=== PATIENT | female | born 1950 | race Caucasian/White ===

== ENCOUNTER → 2019-01-02 | Outpatient (CLI) | payer MEDICARE, BC | LOC: CLIN-SCCH 08:00 | PROVIDERS: ATTEND Family Medicine | DX: R19.7 Diarrhea, unspecified (principal); E03.9 Hypothyroidism, unspecified; E78.00 Pure hypercholesterolemia, unspecified; K74.60 Unspecified cirrhosis of liver | CPT/HCPCS: 99213 ==

== ENCOUNTER 2021-01-17 01:05 | Emergency (ER) | payer MEDICARE ==
--- NOTE | 2021-01-17 01:32 | ERPHSYRPT ---
- History of Present Illness Time Seen by Provider: 01/17/21 01:20 Source: patient Exam Limitations: no limitations Physician History: This is a 70-year-old obese white female who was here at the hospital waiting for her to be admitted. Once her was admitted in the hospital patient went out to her son's car to be transported home. However, when she stepped into the car her other leg that she was standing on gave out and she fell hitting the back of her head. She did not lose consciousness but had a headache and some dizziness. Patient did admit to taking a 25 mg Benadryl by mouth prior to leaving the hospital and being transported home. She has no neck pain. There are no visual changes. Occurred: just prior to arrival Severity: mild Head Injury Location: occipital Method of Injury: fell (Patient slipped and fell on the wet parking lot) Loss of Consciousness: no loss of consciousness Associated Symptoms: headaches Allergies/Adverse Reactions: famotidine [From Pepcid] Adverse Reaction (Intermediate, Verified 01/17/21 01:18) Diarrhea omeprazole [From Prilosec] Adverse Reaction (Intermediate, Verified 01/17/21 01:18) Diarrhea Penicillins Adverse Reaction (Intermediate, Verified 01/17/21 01:18) Hives shellfish derived Adverse Reaction (Intermediate, Verified 01/17/21 01:18) Hives Home Medications: Allopurinol 100 mg [Zyloprim 100 mg] 100 mg PO DAILY 01/17/21 [History] Atorvastatin Calcium 10 mg PO HS 01/17/21 [History] Colesevelam HCl 3.75 gm PO DAILY 01/17/21 [History] Levothyroxine Sodium 88 Mcg [Synthroid 88 Mcg] 88 mcg PO DAILY 01/17/21 [History] Sertraline HCl 100 mg PO DAILY 01/17/21 [History] Solifenacin Succinate 10 mg PO DAILY 01/17/21 [History] Ziprasidone HCl [Geodon] 60 mg PO HS 01/17/21 [History] Travel Risk - International Travel Have you traveled outside of the country in past 3 weeks: No - Coronavirus Screening Are you exhibiting any of the following symptoms?: No Close contact with a COVID-19 positive Pt in past 14-21 Days: No - Review of Systems Constitutional: No Symptoms Eyes: No Symptoms Ears, Nose, & Throat: No Symptoms Respiratory: No Symptoms Cardiac: No Symptoms Abdominal/Gastrointestinal: No Symptoms Genitourinary Symptoms: No Symptoms Musculoskeletal: No Symptoms Skin: No Symptoms Neurological: Dizziness, Headache Psychological: No Symptoms Endocrine: No Symptoms Hematologic/Lymphatic: No Symptoms Immunological/Allergic: No Symptoms All Other Systems: Reviewed and Negative - Past Medical History Pertinent Past Medical History: Yes Neurological History: No Pertinent History ENT History: No Pertinent History Cardiac History: High Cholesterol Respiratory History: No Pertinent History Endocrine Medical History: Hypothyroidism Musculoskeletal History: No Pertinent History GI Medical History: Diverticulitis, Polyps History: No Pertinent History Psycho-Social History: Anxiety, Depression Female Reproductive Disorders: No Pertinent History - Past Surgical History Past Surgical History: Yes Neuro Surgical History: No Pertinent History Cardiac: No Pertinent History Respiratory: No Pertinent History Gastrointestinal: Cholecystectomy Musculoskeletal: Joint Replacement Female Surgical History: Hysterectomy Other Surgical History: HX RIGHT HIP PLACEMENT - Social History Drug Use: none - Nursing Vital Signs Nursing Vital Signs: Initial Vital Signs Temperature 97.2 F 01/17/21 01:06 Pulse Rate 87 01/17/21 01:06 Respiratory Rate 22 01/17/21 01:06 Blood Pressure 158/72 01/17/21 01:06 O2 Sat by Pulse Oximetry 95 01/17/21 01:06 Pain Scale Pain Intensity 7 - [place] Coma Score Best Eye Response ([place]): (4) open spontaneously Best Verbal Response ([place]): (5) oriented Best Motor Response ([place]): (6) obeys commands [place] Total: 15 - Physical Exam General Appearance: no apparent distress, alert, anxiety Head Injury: contusions (Occipital region. No evidence of laceration.), tenderness, No active bleeding, No lacerations Eye Exam: bilateral eye: normal inspection, PERRL, EOMI ENT Exam: airway nml, nml ext.inspection Neck Exam: supple, trachea midline, full range of motion, normal alignment Cardiovascular/Respiratory Exam: chest non-tender, no respiratory distress Gastrointestinal/Abdominal Exam: soft, non tender, no distention, no mass, no guarding, no ecchymosis, no organomegaly, no pulsatile mass, normal bowel sounds Pelvic Exam: not done Rectal Exam: not done Back Exam: normal inspection, normal range of motion, No CVA tenderness, No vertebral tenderness Extremity Exam: non-tender, normal range of motion, normal inspection Mental Status Exam: alert, 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 x 3, 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 Exam: normal hearing, normal speech, PERRL, tongue midline Motor/Sensory Exam: no motor deficit, no sensory deficit Skin Exam: abrasion (Occipital region.), No laceration Lymphatic Exam: No adenopathy SpO2 Interpretation: borderline oxygenation SpO2: 95 O2 Delivery: Room Air - Course Nursing assessment & vital signs reviewed: Yes Ordered Tests: Active Orders 24 hr Category Date Time Status HEAD WITHOUT CONTRAST [CT] Stat Exams 01/17/21 01:31 Taken - Progress Progress: improved Progress Note: 01/17/21 02:35 CAT scan of the head without contrast was read by [facility] and shows no acute intracranial abnormality Counseled pt/family regarding: diagnosis, need for follow-up, rad results - Departure Departure Disposition: Home Clinical Impression: Fall, Head injury Condition: Stable Critical Care Time: No Referrals: NAVJOT ADAMSON DO [Primary Care Provider] - Follow up/PCP as directed Additional Instructions: Drink plenty of fluids. Use Tylenol for pain control. Avoid any sedating drugs for the next 24 hours. Follow-up with your primary care physician for evaluation and management of any persistent headaches or dizziness.
--- NOTE | 2021-01-17 09:20 | XRAY ---
Indication: Head injury following fall. Multiple contiguous axial images obtained through the head without contrast. Comparison: None Small posterior midline scalp hematoma. Otherwise normal appearing brain parenchyma, ventricles, and bony calvarium for patient's age. Visualized paranasal sinuses and mastoid air cells are clear. Impression: Small posterior scalp hematoma. No underlying fracture or acute intracranial abnormalities. Comment: Preliminary interpretation made by [facility]. No critical discrepancy.
== END 2021-01-17 03:35 | disposition home or self-care (01) ==
LOC: ED 01:05
DX: S09.90XA Unspecified injury of head, initial encounter (principal); V48.4XXA Person boarding or alighting a car injured in noncollision transport accident, initial encounter; Y92.481 Parking lot as the place of occurrence of the external cause; Z79.899 Other long term (current) drug therapy; R51.9 Headache, unspecified; R42 Dizziness and giddiness
CPT/HCPCS: 70450; 99284

== ENCOUNTER 2022-06-30 10:07 | Inpatient (IN) | payer MEDICARE, BC ==
--- NOTE | 2022-06-30 10:43 | ERPHSYRPT ---
- History of Present Illness Source: patient Exam Limitations: no limitations Patient Subjective Stated Complaint: PT states "[facility] me here.". 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 We did a PCR, we did a chest x ray and we did a strep test." Triage Nursing Assessment: Pt presented alert and oriented X 3, skin pwd. Pt ambulates with a slow gait, able to speak in clear full sentences pt in slightly short of breath. Physician History: 71 yo WF sent from clinic for new onset of Afib. Pt has had a cough for 4days but denies coryza/fever/N/V/diarrhea/melena/hematochezia/chest pain/abdominal pain. She has DUE. Timing/Duration: gradual onset Severity: mild Prearrival Treatment: no prearrival treatment Modifying Factors: Improves With: activity, coughing Associated Symptoms: denies symptoms Allergies/Adverse Reactions: famotidine [From Pepcid] Adverse Reaction (Intermediate, Verified 01/17/21 01:18) Diarrhea omeprazole [From Prilosec] Adverse Reaction (Intermediate, Verified 01/17/21 01:18) Diarrhea Penicillins Adverse Reaction (Intermediate, Verified 01/17/21 01:18) Hives shellfish derived Adverse Reaction (Intermediate, Verified 01/17/21 01:18) Hives Home Medications: Allopurinol 100 mg [Zyloprim 100 mg] 100 mg PO DAILY 01/17/21 [History] Atorvastatin Calcium 10 mg PO HS 01/17/21 [History] Colesevelam HCl 3.75 gm PO DAILY 01/17/21 [History] Levothyroxine Sodium 88 Mcg [Synthroid 88 Mcg] 88 mcg PO DAILY 01/17/21 [History] Sertraline HCl 100 mg PO DAILY 01/17/21 [History] Solifenacin Succinate 10 mg PO DAILY 01/17/21 [History] ziprasidone HCL [Geodon] 60 mg PO HS 01/17/21 [History] Hx Tetanus, Diphtheria Vaccination/Date Given: Yes Hx Influenza Vaccination/Date Given: No Hx Pneumococcal Vaccination/Date Given: Yes Immunizations Up to Date: Yes Travel Risk - International Travel Have you traveled outside of the country in past 3 weeks: No - Coronavirus Screening Symptoms: Cough: New Onset, Shortness of Breath Close contact with a COVID-19 positive Pt in past 14-21 Days: No - Vaccine Status Have you recieved a Covid-19 vaccination: Yes 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[employer] - Vaccination Dates Date of 2cond Vaccination (if applicable): 06/05/20 - Review of Systems Constitutional: No Symptoms, Fatigue, Malaise Eyes: No Symptoms Ears, Nose, & Throat: No Symptoms Respiratory: No Symptoms, Cough, Dyspnea on Exertion ([place]) Cardiac: No Symptoms Abdominal/Gastrointestinal: No Symptoms Genitourinary Symptoms: No Symptoms Musculoskeletal: No Symptoms Skin: No Symptoms Neurological: No Symptoms Psychological: No Symptoms Endocrine: No Symptoms Hematologic/Lymphatic: No Symptoms Immunological/Allergic: No Symptoms - Past Medical History Pertinent Past Medical History: Yes Neurological History: No Pertinent History ENT History: No Pertinent History Cardiac History: High Cholesterol Respiratory History: No Pertinent History Endocrine Medical History: Hypothyroidism Musculoskeletal History: No Pertinent History GI Medical History: Diverticulitis, Polyps History: No Pertinent History Psycho-Social History: Anxiety, Depression Female Reproductive Disorders: No Pertinent History - Past Surgical History Past Surgical History: Yes Neuro Surgical History: No Pertinent History Cardiac: No Pertinent History Respiratory: No Pertinent History Gastrointestinal: Cholecystectomy Musculoskeletal: Joint Replacement Female Surgical History: Hysterectomy Other Surgical History: HX RIGHT HIP PLACEMENT - Social History Smoking Status: Never smoker Exposure to second hand smoke: No Drug Use: none Patient Lives Alone: No - Nursing Vital Signs Nursing Vital Signs: Initial Vital Signs Temperature 98.7 F 06/30/22 10:12 Pulse Rate 113 H 06/30/22 10:12 Respiratory Rate 24 06/30/22 10:12 Blood Pressure 119/87 06/30/22 10:12 O2 Sat by Pulse Oximetry 95 06/30/22 10:12 Pain Scale Pain Intensity 4 Tachy - Physical Exam General Appearance: no apparent distress Eye Exam: bilateral eye: normal inspection, PERRL, EOMI Ear Exam: bilateral ear: other (TM's occluded by cerumen B) Nasal Exam: normal inspection Throat Exam: normal, pharynx normal Neck Exam: normal inspection, non-tender, supple, full range of motion, trachea midline, No thyromegaly, No Brudzinski's sign, No Kernig's sign Cardiovascular/Respiratory Exam: chest non-tender, no respiratory distress, irregularly irregular, rales (faint rales B bases) Abdominal Exam: non-tender, soft Neurologic Exam: alert, oriented x 3, cooperative, rand sewer II-XII nml as tested, normal mood/affect, nml cerebellar function, nml station & gait, sensation nml Skin Exam: normal color, warm, dry SpO2 Interpretation: normal SpO2: 95 O2 Delivery: Room Air - Course Nursing assessment & vital signs reviewed: Yes EKG Interpreted by Me: RATE (Afib/Rate 128/Low voltage/No acute ST segment changes) - Radiology Exams Chest X-ray Interpretation: Reviewed by me (CXR negative) Ordered Tests: Active Orders 24 hr Category Date Time Status EKG-ER Only STAT Care 06/30/22 10:26 Completed Heart-Healthy Diet Diet 06/30/22 Dinner Active CBC W DIFF AM.LAB Lab 07/01/22 04:00 Ordered CBC W DIFF Stat Lab 06/30/22 10:30 Completed CMP AM.LAB Lab 07/01/22 04:00 Ordered CMP Stat Lab 06/30/22 10:30 Completed CULTURE,URINE Stat Lab 06/30/22 12:21 Received NT PRO BNPII Stat Lab 06/30/22 10:30 Completed PROTIME WITH INR Stat Lab 06/30/22 10:30 Completed PTT Stat Lab 06/30/22 10:30 Completed TROPONIN Q4H Lab 06/30/22 10:30 Completed TROPONIN Q4H Lab 06/30/22 14:30 Ordered TROPONIN Q4H Lab 06/30/22 18:30 Ordered TSH [TSH, 3RD Generation] Stat Lab 06/30/22 11:00 Completed UA W/RFX UR CULTURE Stat Lab 06/30/22 12:21 Completed Transfer Order Routine Transfer 06/30/22 Completed Medication Summary Generic Name Dose Route Start Last Admin Trade Name Freq PRN Reason Stop Dose Admin Diltiazem HCl 100 mls @ 5 mls/hr 06/30/22 11:50 06/30/22 12:01 Cardizem Drip 100 Mg/100 Ml D5w IV 07/30/22 11:49 5 mg/hr .Q20H PRN 5 mls/hr HEART RATE/ A-FIB Administration Protocol 5 MG/HR Ondansetron HCl 4 mg 06/30/22 12:40 Ondansetron Hcl 4 Mg/2 Ml Vial IV 07/30/22 12:39 Q6H PRN PRN NAUSEA/VOMITING Pantoprazole Sodium 40 mg 07/01/22 10:00 Pantoprazole 40 Mg Vial IV 07/31/22 09:59 Q24H10 [place] Discontinued Medications Generic Name Dose Route Start Last Admin Trade Name Freq PRN Reason Stop Dose Admin Diltiazem HCl 10 mg 06/30/22 11:06 06/30/22 11:09 Diltiazem Hcl Iv 5 Mg/Ml Vial IV 06/30/22 11:07 10 mg STAT ONE Administration Diltiazem HCl Confirm 06/30/22 11:08 Diltiazem Hcl Iv 5 Mg/Ml Vial Administered 06/30/22 11:09 Dose 50 mg IV .STK-MED ONE Diltiazem HCl 10 mg 06/30/22 11:50 06/30/22 12:02 Diltiazem Hcl Iv 5 Mg/Ml Vial IV 06/30/22 11:51 10 mg STAT ONE Administration Enoxaparin Sodium 120 mg 06/30/22 12:35 06/30/22 12:39 Enoxaparin Sodium 120 Mg/0.8 Ml Syringe SQ 06/30/22 12:36 120 mg STAT STA Administration Enoxaparin Sodium Confirm 06/30/22 12:38 Enoxaparin Sodium 120 Mg/0.8 Ml Syringe Administered 06/30/22 12:39 Dose 120 mg SQ .STK-MED ONE Metoprolol Tartrate 50 mg 06/30/22 12:36 06/30/22 12:39 Metoprolol Tartrate 25 Mg Tab PO 06/30/22 12:37 50 mg STAT ONE Administration Metoprolol Tartrate Confirm 06/30/22 12:38 Metoprolol Tartrate 25 Mg Tab Administered 06/30/22 12:39 Dose 50 mg .ROUTE .STK-MED ONE Lab/Rad Data: Laboratory Result Diagrams 06/30/22 10:30 06/30/22 10:30 Laboratory Results 06/30/22 06/30/22 06/30/22 Range/Units 12:21 11:00 11:00 WBC (4.0-10.5) x10^3/uL RBC (4.1-5.4) x10^6/uL Hgb (12.0-16.0) g/dL Hct (35-47) % MCV (78-100) fL MCH (26-32) pg MCHC (32-36) g/dL RDW (11.5-14.0) % Plt Count (150-450) x10^3/uL MPV (7.5-11.0) fL Gran % (36.0-66.0) % Immature Gran % (Auto) (0.00-0.4) % Nucleat RBC Rel Count (0.00-0.1) % Eos # (Auto) (0-0.5) x10^3/uL Immature Gran # (Auto) (0.00-0.03) x10^3u/L Absolute Lymphs (auto) (1.0-4.6) x10^3/uL Absolute Monos (auto) (0.0-1.3) x10^3/uL Absolute Nucleated RBC (0.00-0.01) x10^3u/L Lymphocytes % (24.0-44.0) % Monocytes % (0.0-12.0) % Eosinophils % (0.00-5.0) % Basophils % (0.0-0.4) % Absolute Granulocytes (1.4-6.9) x10^3/uL Basophils # (0-0.4) x10^3/uL PT (9.4-12.5) SECONDS INR (0.8-3.0) APTT (25.1-36.5) SECONDS Sodium (137-145) mmol/L Potassium (3.5-5.1) mmol/L Chloride (98-107) mmol/L Carbon Dioxide (22-30) mmol/L Anion Gap (5-15) MEQ/L BUN (7-17) mg/dL Creatinine (0.52-1.04) mg/dL Estimated GFR ML/MIN Glucose (74-106) mg/dL Calcium (8.4-10.2) mg/dL Total Bilirubin (0.2-1.3) mg/dL AST (14-36) U/L ALT (0-35) U/L Alkaline Phosphatase (38-126) U/L Troponin I (0.000-0.034) ng/mL NT-Pro-B Natriuret Pep (<300) pg/mL Serum Total Protein (6.3-8.2) g/dL Albumin (3.5-5.0) g/dL Free T4 1.26 (0.78-2.19) ng/dL TSH 3rd Generation 1.130 (0.47-4.68) mIU/L Urine Color Dark Yellow A (Yellow) Urine Appearance Cloudy A (Clear) Urine pH 6.5 (4.6-8.0) Ur Specific [place] 1.020 (1.005-1.030) Urine Protein Trace A (Negative) Urine Glucose (UA) Negative (Negative) mg/dL Urine Ketones Trace A (Negative) Urine Blood Negative (Negative) Urine Nitrite Positive A (Negative) Urine Bilirubin Negative (Negative) Urine Urobilinogen 1.0 A (0.2) mg/dL Ur Leukocyte Esterase Small A (Negative) U Hyaline Cast (Auto) NONE SEEN (0-2) /LPF Urine Microscopic RBC 0-2 (0-5) /HPF Urine Microscopic WBC 11-20 A (0-5) /HPF Ur Epithelial Cells Few (None Seen) /HPF Urine Bacteria Many A (None Seen) /HPF Urine Culture Reflexed YES (NO) Slides for Path Review 06/30/22 06/30/22 06/30/22 Range/Units 10:30 10:30 10:30 WBC (4.0-10.5) x10^3/uL RBC (4.1-5.4) x10^6/uL Hgb (12.0-16.0) g/dL Hct (35-47) % MCV (78-100) fL MCH (26-32) pg MCHC (32-36) g/dL RDW (11.5-14.0) % Plt Count (150-450) x10^3/uL MPV (7.5-11.0) fL Gran % (36.0-66.0) % Immature Gran % (Auto) (0.00-0.4) % Nucleat RBC Rel Count (0.00-0.1) % Eos # (Auto) (0-0.5) x10^3/uL Immature Gran # (Auto) (0.00-0.03) x10^3u/L Absolute Lymphs (auto) (1.0-4.6) x10^3/uL Absolute Monos (auto) (0.0-1.3) x10^3/uL Absolute Nucleated RBC (0.00-0.01) x10^3u/L Lymphocytes % (24.0-44.0) % Monocytes % (0.0-12.0) % Eosinophils % (0.00-5.0) % Basophils % (0.0-0.4) % Absolute Granulocytes (1.4-6.9) x10^3/uL Basophils # (0-0.4) x10^3/uL PT 11.9 (9.4-12.5) SECONDS INR 1.10 (0.8-3.0) APTT 27.3 (25.1-36.5) SECONDS Sodium (137-145) mmol/L Potassium (3.5-5.1) mmol/L Chloride (98-107) mmol/L Carbon Dioxide (22-30) mmol/L Anion Gap (5-15) MEQ/L BUN (7-17) mg/dL Creatinine (0.52-1.04) mg/dL Estimated GFR ML/MIN Glucose (74-106) mg/dL Calcium (8.4-10.2) mg/dL Total Bilirubin (0.2-1.3) mg/dL AST (14-36) U/L ALT (0-35) U/L Alkaline Phosphatase (38-126) U/L Troponin I < 0.012 (0.000-0.034) ng/mL NT-Pro-B Natriuret Pep 630 (<300) pg/mL Serum Total Protein (6.3-8.2) g/dL Albumin (3.5-5.0) g/dL Free T4 (0.78-2.19) ng/dL TSH 3rd Generation (0.47-4.68) mIU/L Urine Color (Yellow) Urine Appearance (Clear) Urine pH (4.6-8.0) Ur Specific [place] (1.005-1.030) Urine Protein (Negative) Urine Glucose (UA) (Negative) mg/dL Urine Ketones (Negative) Urine Blood (Negative) Urine Nitrite (Negative) Urine Bilirubin (Negative) Urine Urobilinogen (0.2) mg/dL Ur Leukocyte Esterase (Negative) U Hyaline Cast (Auto) (0-2) /LPF Urine Microscopic RBC (0-5) /HPF Urine Microscopic WBC (0-5) /HPF Ur Epithelial Cells (None Seen) /HPF Urine Bacteria (None Seen) /HPF Urine Culture Reflexed (NO) Slides for Path Review 06/30/22 06/30/22 Range/Units 10:30 10:30 WBC 4.8 (4.0-10.5) x10^3/uL RBC 4.95 (4.1-5.4) x10^6/uL Hgb 15.1 (12.0-16.0) g/dL Hct 48.2 H (35-47) % MCV 97.4 (78-100) fL MCH 30.5 (26-32) pg MCHC 31.3 L (32-36) g/dL RDW 13.9 (11.5-14.0) % Plt Count 104 L (150-450) x10^3/uL MPV 11.6 H (7.5-11.0) fL Gran % 76.0 H (36.0-66.0) % Immature Gran % (Auto) 0.2 (0.00-0.4) % Nucleat RBC Rel Count 0.0 (0.00-0.1) % Eos # (Auto) 0.03 (0-0.5) x10^3/uL Immature Gran # (Auto) 0.01 (0.00-0.03) x10^3u/L Absolute Lymphs (auto) 0.54 L (1.0-4.6) x10^3/uL Absolute Monos (auto) 0.52 (0.0-1.3) x10^3/uL Absolute Nucleated RBC 0.00 (0.00-0.01) x10^3u/L Lymphocytes % 11.3 L (24.0-44.0) % Monocytes % 10.9 (0.0-12.0) % Eosinophils % 0.6 (0.00-5.0) % Basophils % 1.0 (0.0-0.4) % Absolute Granulocytes 3.62 (1.4-6.9) x10^3/uL Basophils # 0.05 (0-0.4) x10^3/uL PT (9.4-12.5) SECONDS INR (0.8-3.0) APTT (25.1-36.5) SECONDS Sodium 139 (137-145) mmol/L Potassium 4.2 (3.5-5.1) mmol/L Chloride 105 (98-107) mmol/L Carbon Dioxide 24 (22-30) mmol/L Anion Gap 13.5 (5-15) MEQ/L BUN 13 (7-17) mg/dL Creatinine 0.76 (0.52-1.04) mg/dL Estimated GFR > 60.0 ML/MIN Glucose 128 H (74-106) mg/dL Calcium 9.2 (8.4-10.2) mg/dL Total Bilirubin 2.40 H (0.2-1.3) mg/dL AST 63 H (14-36) U/L ALT 32 (0-35) U/L Alkaline Phosphatase 78 (38-126) U/L Troponin I (0.000-0.034) ng/mL NT-Pro-B Natriuret Pep (<300) pg/mL Serum Total Protein 7.5 (6.3-8.2) g/dL Albumin 4.1 (3.5-5.0) g/dL Free T4 (0.78-2.19) ng/dL TSH 3rd Generation (0.47-4.68) mIU/L Urine Color (Yellow) Urine Appearance (Clear) Urine pH (4.6-8.0) Ur Specific [place] (1.005-1.030) Urine Protein (Negative) Urine Glucose (UA) (Negative) mg/dL Urine Ketones (Negative) Urine Blood (Negative) Urine Nitrite (Negative) Urine Bilirubin (Negative) Urine Urobilinogen (0.2) mg/dL Ur Leukocyte Esterase (Negative) U Hyaline Cast (Auto) (0-2) /LPF Urine Microscopic RBC (0-5) /HPF Urine Microscopic WBC (0-5) /HPF Ur Epithelial Cells (None Seen) /HPF Urine Bacteria (None Seen) /HPF Urine Culture Reflexed (NO) Slides for Path Review YES - Progress Progress Note: 06/30/22 14:27 Nursing note and vital signs reviewed No food or housing insecurities noted All lab results reviewed and shared w pt CXR result reviewed Afib w RVR rate controlled w 10mg IV Cardizem x2/Cardizem drip/50mg po Lopressor Obs per Dr. Forde after pt given choice of Transfer vs stay at [facility] Dr. Forde alerted that pt's Fluvid test later + for CV19 Pt w good sats and normal ausculatory exam in ER Discussed with : Elpidio Counseled pt/family regarding: lab results, diagnosis, rad results Medical Desision Making - Discussion of managment Care discussed with:: PCP Reviewed:: Test results, Need for additional workup Agreed on:: place in obs Will see patient: in hospital - Diagnostic Testing Diagnostic test were ordered, analyzed, and reviewed by me: Yes Radiological Interpretation: Reviewed by me - Risk of complications The pt has a high risk of morbidity or mortality based on: Drug therapy requiring intensive monitoring for toxicity - Departure Departure Disposition: Observation Clinical Impression: A-fib, COVID-19 Condition: Stable Critical Care Time: Yes Critical Care Time(excluding separately billable procedures): Critical 30-74 mins
[2022-06-30 10:46] LABS: Absolute Neutrophil Ct (ANC) 3.62 x10^3/uL (1.4-6.9); Basophil (Absolute #) 0.05 x10^3/uL (0-0.4); Eosinophil % 0.6 % (0.00-5.0); Eosinophil (Absolute #) 0.03 x10^3/uL (0-0.5); Hematocrit 48.2 % (35-47); Hemoglobin 15.1 g/dL (12.0-16.0); IMMATURE GRAN # 0.01 x10^3u/L (0.00-0.03); IMMATURE GRAN % 0.2 % (0.00-0.4); Lymphocyte (Absolute #) 0.54 x10^3/uL (1.0-4.6); Lymphocytes % 11.3 % (24.0-44.0); Mean Cell Volume 97.4 fL (78-100); Mean Corpuscular Hemoglobin 30.5 pg (26-32); Mean Corpuscular Hgb Concent. 31.3 g/dL (32-36); Mean Platelet Volume 11.6 fL (7.5-11.0); Monocyte (Absolute #) 0.52 x10^3/uL (0.0-1.3); Monocytes % 10.9 % (0.0-12.0); Platelet Count 104 x10^3/uL (150-450); Red Blood Count 4.95 x10^6/uL (4.1-5.4); Red Cell Distribution Width 13.9 % (11.5-14.0); White Blood Count 4.8 x10^3/uL (4.0-10.5)
[2022-06-30] MEDS ORDERED: Cardizem IV 50 MG/10 ML IV ONE ×3 (11:06→11:50)
[2022-06-30 11:09] LABS: INR 1.1 (0.8-3.0); PROTIME 11.9 SECONDS (9.4-12.5); PTT 27.3 SECONDS (25.1-36.5)
[2022-06-30 11:24] LABS: ALBUMIN 4.1 g/dL (3.5-5.0); ALKALINE PHOSPHATASE 78 U/L (38-126); ANION GAP 13.5 MEQ/L (5-15); BLOOD UREA NITROGEN 13 mg/dL (7-17); CHLORIDE 105 mmol/L (98-107); Calcium 9.2 mg/dL (8.4-10.2); Carbon Dioxide 24 mmol/L (22-30); Creatinine 1 0.76 mg/dL (0.52-1.04); EST GLOMERULAR FILTRATION RATE > 60.0 ML/MIN; Glucose 128 mg/dL (74-106); Potassium 4.2 mmol/L (3.5-5.1); SGOT/AST 63 U/L (14-36); SGPT/ALT 32 U/L (0-35); SODIUM 139 mmol/L (137-145); Total Protein 7.5 g/dL (6.3-8.2)
[2022-06-30 11:42] LABS: Slide Review 1 YES
[2022-06-30] MEDS ORDERED: CARDIZEM DRIP 100 MG/100 ML D5W 100 ML IV PRN (11:50)
[2022-06-30] MEDS ORDERED: ENOXAPARIN SODIUM SQ STA (12:35)
[2022-06-30] MEDS ORDERED: Lopressor 25MG Tab PO ONE (12:36)
[2022-06-30] MEDS ORDERED: Lopressor 25MG Tab ONE (12:38)
[2022-06-30] MEDS ORDERED: ENOXAPARIN SODIUM SQ ONE (12:38)
[2022-06-30] MEDS ORDERED: Zofran 4 MG/2 ML VIAL IV PRN (12:40)
[2022-06-30 12:53] LABS: Appearance Cloudy (Clear); Bacteria Many /HPF (None Seen); Bilirubin Negative (Negative); Blood Negative (Negative); Epithelial Cells Few /HPF (None Seen); Glucose, Urine Negative (Negative); Hyaline Casts NONE SEEN /LPF (0-2); Ketones Trace (Negative); Leukocyte Esterase Small (Negative); Nitrite Positive (Negative); Ph 6.5 (4.6-8.0); Protein,Urine Dip Trace (Negative); RBC 0-2 /HPF (0-5)
[2022-06-30 12:58] LABS: ADD URINE CULTURE? YES (NO)
[2022-06-30] MEDS ORDERED: Cardizem CD PO ONE (16:00)
[2022-06-30] MEDS ORDERED: MEDICATION INTERVENTION MC SCH ×2 (17:15)
[2022-06-30] MEDS: BENADRYL 25 MG CAPSULE PO PRN (17:58)
[2022-06-30] MEDS: TYLENOL EXTRA STRENGTH 500 MG PO PRN (17:58)
[2022-06-30] MEDS ORDERED: Sodium Chloride 0.9% 500 ML 500 ML IV ONE (19:46)
[2022-06-30] MEDS ORDERED: REMDESIVIR 200 MG in Sodium Chloride 0.9% 250 ML 250 ML IV ONE (20:08)
[2022-06-30] MEDS ORDERED: REMDESIVIR 100 MG in Sodium Chloride 100ML MINI-BAG PLUS 100 ML IV SCH (20:15)
--- NOTE | 2022-06-30 20:15 | PCM.HP ---
History of Present Illness - Chief Complaint Chief Complaint: Afib/CV19 History of Present Illness: is a 71 year old female who started having a cough and feeling very tired on Wednesday, 3 days ago. She was seen at [facility] then referred to ER with Afib rate 140. Covid was positive,strep test negative in [facility] but her had positive strep and covid test. Cardiazem drip was started in the ER and Lovenox. 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 Patient is admitted to [facility] ICU to continue Cardiazem drip. Remdesivir started. - Review of Systems Constitutional: Lethargy Eyes: No Symptoms Ears, Nose, & Throat: Nose Congestion, Sinus Drainage Respiratory: Cough Cardiac: Edema, Palpitations Abdominal/Gastrointestinal: Appetite Changes (loss of appetite) Genitourinary Symptoms: No Symptoms Musculoskeletal: Arthralgias Skin: No Symptoms Neurological: No Symptoms Psychological: Depression Endocrine: Other (hypothyroid) Medications & Allergies Home Medications: Home Medication List Allopurinol 100 mg [Zyloprim 100 mg] 100 mg PO DAILY 01/17/21 [History Confirmed 06/30/22] Atorvastatin Calcium 10 mg PO HS 01/17/21 [History Confirmed 06/30/22] Levothyroxine Sodium 88 Mcg [Synthroid 88 Mcg] 88 mcg PO DAILY 01/17/21 [History Confirmed 06/30/22] Sertraline HCl 100 mg PO HS 01/17/21 [History Confirmed 06/30/22] Solifenacin Succinate 10 mg PO DAILY 01/17/21 [History Confirmed 06/30/22] Acetaminophen 500 mg [Tylenol Extra Strength 500 mg] 500 mg PO Q4HPRN PRN 06/30/22 [History Confirmed 06/30/22] Amlodipine Besylate 2.5 mg PO DAILY 06/30/22 [History Confirmed 06/30/22] Colesevelam HCl [Welchol] 625 mg PO QAM 06/30/22 [History Confirmed 06/30/22] Diphenhydramine HCl 25 mg [Benadryl 25 mg Capsule] 25 mg PO Q4H PRN PRN 06/30/22 [History Confirmed 06/30/22] Ziprasidone HCl [Geodon] 40 mg PO HS 06/30/22 [History Confirmed 06/30/22] Allergies/Adverse Reactions: Allergies Allergy/AdvReac Type Severity Reaction Status Date / Time amoxicillin Allergy Hives Verified 06/30/22 15:45 erythromycin base Allergy Hives Verified 06/30/22 15:45 levofloxacin [From Levaquin] Allergy Hives Verified 06/30/22 15:46 famotidine [From Pepcid] AdvReac Intermediate Diarrhea Verified 01/17/21 01:18 omeprazole [From Prilosec] AdvReac Intermediate Diarrhea Verified 01/17/21 01:18 Penicillins AdvReac Intermediate Hives Verified 01/17/21 01:18 shellfish derived AdvReac Intermediate Hives Verified 01/17/21 01:18 - Past Medical History Past Medical History: Yes Neurological History: No Pertinent History ENT History: No Pertinent History Cardiac History: High Cholesterol Respiratory History: No Pertinent History Endocrine Medical History: Hypothyroidism Musculoskelatal History: Arthritis GI Medical History: Diverticulitis, Polyps History: No Pertinent History Pyscho-Social History: Anxiety, Depression Reproductive Disorders: No Pertinent History - Female History Hx Last Menstrual Period: POST Are you now?: No - Past Surgical History Past Surgical History: Yes Neuro Surgical History: No Pertinent History Cardiac History: No Pertinent History Respiratory Surgery: No Pertinent History GI Surgical History: Cholecystectomy Musculskeletal Surgical Hx: Joint Replacement Female Surgical History: Hysterectomy Other Surgical History: HX RIGHT HIP PLACEMENT - Social History Smoking Status: Never smoker Exposure to second hand smoke: No Alcohol: None Drug Use: none - Physical Exam Vital Signs: Vital Signs - 24 hr Temp Pulse Resp BP BP BP Pulse Ox 06/30/22 19:48 95 06/30/22 18:13 82 27 H 109/60 06/30/22 16:00 98.5 F 83 23 119/73 96 06/30/22 15:19 99.4 F 110 H 22 127/91 119/93 91 L 06/30/22 14:52 90 L 06/30/22 14:32 95 06/30/22 12:45 98.2 F 111 H 22 119/93 93 L 06/30/22 12:00 115 H 30 H 140/87 95 06/30/22 11:07 99 H 106/74 94 L 06/30/22 10:12 98.7 F 113 H 24 119/87 95 General Appearance: no apparent distress, lethargy Neurologic Exam: alert, oriented x 3, cooperative, normal mood/affect Eye Exam: eyes nml inspection Ears, Nose, Throat Exam: moist mucous membranes, other (mild nasal congestion) Neck Exam: normal inspection Respiratory Exam: diminished breath sounds (bases), other (on 2L /NC) Cardiovascular Exam: irregular (rate 80s) Gastrointestinal/Abdomen Exam: soft Pelvic Exam: not done Back Exam: normal inspection Extremity Exam: pedal edema (trace,no calve tenderness) Skin Exam: normal color, warm, dry Results - Labs Lab/Micro Results: Lab Results-Last 24 Hours 06/30/22 06/30/22 06/30/22 Range/Units 10:30 10:30 10:30 WBC 4.8 (4.0-10.5) x10^3/uL RBC 4.95 (4.1-5.4) x10^6/uL Hgb 15.1 (12.0-16.0) g/dL Hct 48.2 H (35-47) % MCV 97.4 (78-100) fL MCH 30.5 (26-32) pg MCHC 31.3 L (32-36) g/dL RDW 13.9 (11.5-14.0) % Plt Count 104 L (150-450) x10^3/uL MPV 11.6 H (7.5-11.0) fL Gran % 76.0 H (36.0-66.0) % Immature Gran % (Auto) 0.2 (0.00-0.4) % Nucleat RBC Rel Count 0.0 (0.00-0.1) % Eos # (Auto) 0.03 (0-0.5) x10^3/uL Immature Gran # (Auto) 0.01 (0.00-0.03) x10^3u/L Absolute Lymphs (auto) 0.54 L (1.0-4.6) x10^3/uL Absolute Monos (auto) 0.52 (0.0-1.3) x10^3/uL Absolute Nucleated RBC 0.00 (0.00-0.01) x10^3u/L Lymphocytes % 11.3 L (24.0-44.0) % Monocytes % 10.9 (0.0-12.0) % Eosinophils % 0.6 (0.00-5.0) % Basophils % 1.0 (0.0-0.4) % Absolute Granulocytes 3.62 (1.4-6.9) x10^3/uL Basophils # 0.05 (0-0.4) x10^3/uL PT 11.9 (9.4-12.5) SECONDS INR 1.10 (0.8-3.0) APTT 27.3 (25.1-36.5) SECONDS Sodium 139 (137-145) mmol/L Potassium 4.2 (3.5-5.1) mmol/L Chloride 105 (98-107) mmol/L Carbon Dioxide 24 (22-30) mmol/L Anion Gap 13.5 (5-15) MEQ/L BUN 13 (7-17) mg/dL Creatinine 0.76 (0.52-1.04) mg/dL Estimated GFR > 60.0 ML/MIN Glucose 128 H (74-106) mg/dL Calcium 9.2 (8.4-10.2) mg/dL Total Bilirubin 2.40 H (0.2-1.3) mg/dL AST 63 H (14-36) U/L ALT 32 (0-35) U/L Alkaline Phosphatase 78 (38-126) U/L Troponin (0.00-0.03) ng/mL Troponin I (0.000-0.034) ng/mL NT-Pro-B Natriuret Pep (<300) pg/mL Serum Total Protein 7.5 (6.3-8.2) g/dL Albumin 4.1 (3.5-5.0) g/dL Free T4 (0.78-2.19) ng/dL TSH 3rd Generation (0.47-4.68) mIU/L Urine Color (Yellow) Urine Appearance (Clear) Urine pH (4.6-8.0) Ur Specific [place] (1.005-1.030) Urine Protein (Negative) Urine Glucose (UA) (Negative) mg/dL Urine Ketones (Negative) Urine Blood (Negative) Urine Nitrite (Negative) Urine Bilirubin (Negative) Urine Urobilinogen (0.2) mg/dL Ur Leukocyte Esterase (Negative) U Hyaline Cast (Auto) (0-2) /LPF Urine Microscopic RBC (0-5) /HPF Urine Microscopic WBC (0-5) /HPF Ur Epithelial Cells (None Seen) /HPF Urine Bacteria (None Seen) /HPF Urine Culture Reflexed (NO) Slides for Path Review YES 06/30/22 06/30/22 06/30/22 Range/Units 10:30 10:30 11:00 WBC (4.0-10.5) x10^3/uL RBC (4.1-5.4) x10^6/uL Hgb (12.0-16.0) g/dL Hct (35-47) % MCV (78-100) fL MCH (26-32) pg MCHC (32-36) g/dL RDW (11.5-14.0) % Plt Count (150-450) x10^3/uL MPV (7.5-11.0) fL Gran % (36.0-66.0) % Immature Gran % (Auto) (0.00-0.4) % Nucleat RBC Rel Count (0.00-0.1) % Eos # (Auto) (0-0.5) x10^3/uL Immature Gran # (Auto) (0.00-0.03) x10^3u/L Absolute Lymphs (auto) (1.0-4.6) x10^3/uL Absolute Monos (auto) (0.0-1.3) x10^3/uL Absolute Nucleated RBC (0.00-0.01) x10^3u/L Lymphocytes % (24.0-44.0) % Monocytes % (0.0-12.0) % Eosinophils % (0.00-5.0) % Basophils % (0.0-0.4) % Absolute Granulocytes (1.4-6.9) x10^3/uL Basophils # (0-0.4) x10^3/uL PT (9.4-12.5) SECONDS INR (0.8-3.0) APTT (25.1-36.5) SECONDS Sodium (137-145) mmol/L Potassium (3.5-5.1) mmol/L Chloride (98-107) mmol/L Carbon Dioxide (22-30) mmol/L Anion Gap (5-15) MEQ/L BUN (7-17) mg/dL Creatinine (0.52-1.04) mg/dL Estimated GFR ML/MIN Glucose (74-106) mg/dL Calcium (8.4-10.2) mg/dL Total Bilirubin (0.2-1.3) mg/dL AST (14-36) U/L ALT (0-35) U/L Alkaline Phosphatase (38-126) U/L Troponin (0.00-0.03) ng/mL Troponin I < 0.012 (0.000-0.034) ng/mL NT-Pro-B Natriuret Pep 630 (<300) pg/mL Serum Total Protein (6.3-8.2) g/dL Albumin (3.5-5.0) g/dL Free T4 1.26 (0.78-2.19) ng/dL TSH 3rd Generation (0.47-4.68) mIU/L Urine Color (Yellow) Urine Appearance (Clear) Urine pH (4.6-8.0) Ur Specific [place] (1.005-1.030) Urine Protein (Negative) Urine Glucose (UA) (Negative) mg/dL Urine Ketones (Negative) Urine Blood (Negative) Urine Nitrite (Negative) Urine Bilirubin (Negative) Urine Urobilinogen (0.2) mg/dL Ur Leukocyte Esterase (Negative) U Hyaline Cast (Auto) (0-2) /LPF Urine Microscopic RBC (0-5) /HPF Urine Microscopic WBC (0-5) /HPF Ur Epithelial Cells (None Seen) /HPF Urine Bacteria (None Seen) /HPF Urine Culture Reflexed (NO) Slides for Path Review 06/30/22 06/30/22 06/30/22 Range/Units 11:00 12:21 15:54 WBC (4.0-10.5) x10^3/uL RBC (4.1-5.4) x10^6/uL Hgb (12.0-16.0) g/dL Hct (35-47) % MCV (78-100) fL MCH (26-32) pg MCHC (32-36) g/dL RDW (11.5-14.0) % Plt Count (150-450) x10^3/uL MPV (7.5-11.0) fL Gran % (36.0-66.0) % Immature Gran % (Auto) (0.00-0.4) % Nucleat RBC Rel Count (0.00-0.1) % Eos # (Auto) (0-0.5) x10^3/uL Immature Gran # (Auto) (0.00-0.03) x10^3u/L Absolute Lymphs (auto) (1.0-4.6) x10^3/uL Absolute Monos (auto) (0.0-1.3) x10^3/uL Absolute Nucleated RBC (0.00-0.01) x10^3u/L Lymphocytes % (24.0-44.0) % Monocytes % (0.0-12.0) % Eosinophils % (0.00-5.0) % Basophils % (0.0-0.4) % Absolute Granulocytes (1.4-6.9) x10^3/uL Basophils # (0-0.4) x10^3/uL PT (9.4-12.5) SECONDS INR (0.8-3.0) APTT (25.1-36.5) SECONDS Sodium (137-145) mmol/L Potassium (3.5-5.1) mmol/L Chloride (98-107) mmol/L Carbon Dioxide (22-30) mmol/L Anion Gap (5-15) MEQ/L BUN (7-17) mg/dL Creatinine (0.52-1.04) mg/dL Estimated GFR ML/MIN Glucose (74-106) mg/dL Calcium (8.4-10.2) mg/dL Total Bilirubin (0.2-1.3) mg/dL AST (14-36) U/L ALT (0-35) U/L Alkaline Phosphatase (38-126) U/L Troponin 0.00 (0.00-0.03) ng/mL Troponin I (0.000-0.034) ng/mL NT-Pro-B Natriuret Pep (<300) pg/mL Serum Total Protein (6.3-8.2) g/dL Albumin (3.5-5.0) g/dL Free T4 (0.78-2.19) ng/dL TSH 3rd Generation 1.130 (0.47-4.68) mIU/L Urine Color Dark Yellow A (Yellow) Urine Appearance Cloudy A (Clear) Urine pH 6.5 (4.6-8.0) Ur Specific [place] 1.020 (1.005-1.030) Urine Protein Trace A (Negative) Urine Glucose (UA) Negative (Negative) mg/dL Urine Ketones Trace A (Negative) Urine Blood Negative (Negative) Urine Nitrite Positive A (Negative) Urine Bilirubin Negative (Negative) Urine Urobilinogen 1.0 A (0.2) mg/dL Ur Leukocyte Esterase Small A (Negative) U Hyaline Cast (Auto) NONE SEEN (0-2) /LPF Urine Microscopic RBC 0-2 (0-5) /HPF Urine Microscopic WBC 11-20 A (0-5) /HPF Ur Epithelial Cells Few (None Seen) /HPF Urine Bacteria Many A (None Seen) /HPF Urine Culture Reflexed YES (NO) Slides for Path Review 06/30/22 Range/Units 18:00 WBC (4.0-10.5) x10^3/uL RBC (4.1-5.4) x10^6/uL Hgb (12.0-16.0) g/dL Hct (35-47) % MCV (78-100) fL MCH (26-32) pg MCHC (32-36) g/dL RDW (11.5-14.0) % Plt Count (150-450) x10^3/uL MPV (7.5-11.0) fL Gran % (36.0-66.0) % Immature Gran % (Auto) (0.00-0.4) % Nucleat RBC Rel Count (0.00-0.1) % Eos # (Auto) (0-0.5) x10^3/uL Immature Gran # (Auto) (0.00-0.03) x10^3u/L Absolute Lymphs (auto) (1.0-4.6) x10^3/uL Absolute Monos (auto) (0.0-1.3) x10^3/uL Absolute Nucleated RBC (0.00-0.01) x10^3u/L Lymphocytes % (24.0-44.0) % Monocytes % (0.0-12.0) % Eosinophils % (0.00-5.0) % Basophils % (0.0-0.4) % Absolute Granulocytes (1.4-6.9) x10^3/uL Basophils # (0-0.4) x10^3/uL PT (9.4-12.5) SECONDS INR (0.8-3.0) APTT (25.1-36.5) SECONDS Sodium (137-145) mmol/L Potassium (3.5-5.1) mmol/L Chloride (98-107) mmol/L Carbon Dioxide (22-30) mmol/L Anion Gap (5-15) MEQ/L BUN (7-17) mg/dL Creatinine (0.52-1.04) mg/dL Estimated GFR ML/MIN Glucose (74-106) mg/dL Calcium (8.4-10.2) mg/dL Total Bilirubin (0.2-1.3) mg/dL AST (14-36) U/L ALT (0-35) U/L Alkaline Phosphatase (38-126) U/L Troponin (0.00-0.03) ng/mL Troponin I < 0.012 (0.000-0.034) ng/mL NT-Pro-B Natriuret Pep (<300) pg/mL Serum Total Protein (6.3-8.2) g/dL Albumin (3.5-5.0) g/dL Free T4 (0.78-2.19) ng/dL TSH 3rd Generation (0.47-4.68) mIU/L Urine Color (Yellow) Urine Appearance (Clear) Urine pH (4.6-8.0) Ur Specific [place] (1.005-1.030) Urine Protein (Negative) Urine Glucose (UA) (Negative) mg/dL Urine Ketones (Negative) Urine Blood (Negative) Urine Nitrite (Negative) Urine Bilirubin (Negative) Urine Urobilinogen (0.2) mg/dL Ur Leukocyte Esterase (Negative) U Hyaline Cast (Auto) (0-2) /LPF Urine Microscopic RBC (0-5) /HPF Urine Microscopic WBC (0-5) /HPF Ur Epithelial Cells (None Seen) /HPF Urine Bacteria (None Seen) /HPF Urine Culture Reflexed (NO) Slides for Path Review - Radiology Impressions Radiology Exams & Impressions: Radiology Procedures Category Date Time Status ECHO W/2D AND DOPPLER [US] Urgent Exams 07/01/22 10:00 Ordered - Other Procedures and Tests Respiratory Therapy 06/30/22 14:51 Oxygen NASAL CANNULA 2 lpm Assessment/Plan (1) A-fib Current Visit: Yes Status: Acute Assessment & Plan: Cardiazem drip ,rate controlled. Cardiology consult, ECHO Code(s): I48.91 - UNSPECIFIED ATRIAL FIBRILLATION (2) COVID-19 Current Visit: Yes Status: Acute Assessment & Plan: Remdesivir started. Respirations stable on 2L O2/NC Code(s): U07.1 - COVID-19 (3) HTN (hypertension) Current Visit: Yes Status: Chronic Assessment & Plan: mild Code(s): I10 - ESSENTIAL (PRIMARY) HYPERTENSION
[2022-06-30] MEDS ORDERED: Sodium Chloride 0.9% 250 ML 250 ML IV ONE (21:38)
[2022-06-30] MEDS ORDERED: REMDESIVIR IV ONE (21:39)
[2022-06-30] MEDS: Geodon 20 MG Capsule PO SCH (21:54)
[2022-06-30] MEDS: ZOLOFT 50 MG TABLET PO SCH (21:54)
[2022-06-30] MEDS: Zocor 10MG PO SCH (21:54)
[2022-06-30] MEDS ORDERED: NON-FORMULARY ITEM (Sertraline Hcl [Sertraline Hcl] 100 MG Tablet) PO SCH (22:00)
[2022-06-30] MEDS ORDERED: NON-FORMULARY ITEM (Atorvastatin Calcium [Atorvastatin Calcium] 10 MG Tablet) PO SCH (22:00)
[2022-06-30] MEDS ORDERED: ZIPRASIDONE HCL 40 MG PO SCH (22:00)
[2022-07-01 05:35] LABS: BASOPHIL % 0.6 % (0.0-0.4); Basophil (Absolute #) 0.02 x10^3/uL (0-0.4); Eosinophil % 0.3 % (0.00-5.0); Eosinophil (Absolute #) 0.01 x10^3/uL (0-0.5); Hematocrit 45.2 % (35-47); Hemoglobin 14.2 g/dL (12.0-16.0); IMMATURE GRAN # 0.01 x10^3u/L (0.00-0.03); IMMATURE GRAN % 0.3 % (0.00-0.4); Lymphocyte (Absolute #) 0.93 x10^3/uL (1.0-4.6); Lymphocytes % 25.7 % (24.0-44.0); Mean Corpuscular Hemoglobin 29.8 pg (26-32); Mean Corpuscular Hgb Concent. 31.4 g/dL (32-36); Mean Platelet Volume 11.4 fL (7.5-11.0); Monocyte (Absolute #) 0.55 x10^3/uL (0.0-1.3); Monocytes % 15.2 % (0.0-12.0); Neutrophil % 57.9 % (36.0-66.0); Platelet Count 90 x10^3/uL (150-450); Red Blood Count 4.76 x10^6/uL (4.1-5.4); Red Cell Distribution Width 14.2 % (11.5-14.0); White Blood Count 3.6 x10^3/uL (4.0-10.5)
[2022-07-01 06:58] LABS: ALKALINE PHOSPHATASE 74 U/L (38-126); ANION GAP 12.6 MEQ/L (5-15); BLOOD UREA NITROGEN 14 mg/dL (7-17); CHLORIDE 104 mmol/L (98-107); Calcium 8.8 mg/dL (8.4-10.2); Carbon Dioxide 26 mmol/L (22-30); Creatinine 1 0.76 mg/dL (0.52-1.04); EST GLOMERULAR FILTRATION RATE > 60.0 ML/MIN; Glucose 118 mg/dL (74-106); NT PRO BNPII 1360 pg/mL (<300); Potassium 3.9 mmol/L (3.5-5.1); SGOT/AST 65 U/L (14-36); SGPT/ALT 32 U/L (0-35); SODIUM 139 mmol/L (137-145); Total Protein 7.5 g/dL (6.3-8.2)
[2022-07-01 07:49] LABS: Slide Review 1 YES
--- NOTE | 2022-07-01 09:11 | XRAY ---
Indication: Short of breath. Suspect Covid 19. Comparison: One day earlier Portable chest now demonstrates hazy airspace disease left lung base with tiny effusion. Remaining heart and right lung normal.
[2022-07-01] MEDS ORDERED: NORVASC 5 MG PO SCH (10:00)
[2022-07-01] MEDS ORDERED: COLESEVELAM HCL 625 MG PO SCH (10:00)
[2022-07-01] MEDS ORDERED: SOLIFENACIN SUCCINATE 10 MG PO SCH (10:00)
[2022-07-01] MEDS ORDERED: NON-FORMULARY ITEM (Amlodipine Besylate [Amlodipine Besylate] 2.5 MG Tablet) PO SCH (10:00)
[2022-07-01] MEDS ORDERED: ENOXAPARIN SODIUM SQ SCH (10:00)
[2022-07-01] MEDS ORDERED: ELIQUIS 2.5 MG TABLET PO SCH (10:00)
[2022-07-01] MEDS ORDERED: Cardizem CD PO SCH (10:00)
[2022-07-01] MEDS: SYNTHROID 88 MCG PO SCH (10:55)
[2022-07-01] MEDS: ZYLOPRIM 100 MG PO SCH (10:55)
[2022-07-01] MEDS: PROTONIX 40 MG IV IV SCH (10:55)
[2022-07-01] MEDS: ELIQUIS 2.5 MG TABLET PO SCH ×2 (11:53→21:57)
[2022-07-01] MEDS ORDERED: Cardizem 30 MG PO SCH (12:00)
[2022-07-01] MEDS: ROCEPHIN 1 Gm-D5w 50 ml Bag** 1 G/50 ML IVPB IV SCH (13:20)
[2022-07-01] MEDS: REMDESIVIR 100 MG in Sodium Chloride 100ML MINI-BAG PLUS 100 ML IV SCH (19:58)
[2022-07-01] MEDS: TYLENOL EXTRA STRENGTH 500 MG PO PRN (19:59)
[2022-07-01] MEDS: BENADRYL 25 MG CAPSULE PO PRN (20:14)
[2022-07-01] MEDS: Geodon 20 MG Capsule PO SCH (21:56)
[2022-07-01] MEDS: ZOLOFT 50 MG TABLET PO SCH (21:57)
[2022-07-01] MEDS: Zocor 10MG PO SCH (21:57)
[2022-07-02] MEDS: Cardizem CD PO SCH (09:21)
[2022-07-02] MEDS: ELIQUIS 2.5 MG TABLET PO SCH ×2 (09:21→22:16)
[2022-07-02] MEDS: ROCEPHIN 1 Gm-D5w 50 ml Bag** 1 G/50 ML IVPB IV SCH (09:21)
[2022-07-02] MEDS: ZYLOPRIM 100 MG PO SCH (09:21)
[2022-07-02] MEDS: PROTONIX 40 MG IV IV SCH (09:22)
[2022-07-02] MEDS: SYNTHROID 88 MCG PO SCH (09:22)
[2022-07-02] MEDS ORDERED: Cardizem CD PO ONE (12:00)
--- NOTE | 2022-07-02 22:00 | PCM.NOTE ---
Date and Time: 07/02/222143 Subjective Assessment: Geovanna is improving but still very tired and requiring O2.This evening will receive 3rd dose RemdesivirAppetite is good. PT will start working with ptn. Equip Maint Eng consult appreciated.Dr Monique increased Cardiazem from 180 to 240 mg.Possible Cardioversion as outpatient. Objective Exam General Appearance: no apparent distress Neurologic Exam: alert, oriented x 3, cooperative Skin Exam: normal color, warm, dry Cardiovascular Exam: capillary refill <2 sec Gastrointestinal/Abdomen Exam: soft, normal bowel sounds OBJECTIVE DATA Vital Signs: Vital Signs - 24 hr Temp Pulse Resp BP Pulse Ox 07/02/22 20:00 97.9 F 88 18 129/73 92 L 07/02/22 18:21 92 L 07/02/22 16:36 94 L 07/02/22 16:00 97.6 F 79 16 127/65 96 07/02/22 12:00 97.8 F 83 17 139/69 94 L 07/02/22 08:00 80.1 F 81 18 93 L 07/02/22 04:05 98.2 F 87 19 109/58 95 07/02/22 02:00 91 L 07/01/22 23:46 97.9 F 99 H 20 121/77 94 L 07/01/22 22:14 94 L Pain Assessment - Last Documented Pain Intensity 0 Pain Scale Used 0-10 Pain Scale Intake and Output: Intake & Output 06/30/22 07/01/22 07/02/22 07/03/22 11:59 11:59 11:59 11:59 Intake Total 1785 940 240 Output Total 200 200 Balance 1585 740 240 Weight 130.3 kg 125.4 kg Lab Results: Lab Results-Last 24 Hours 07/02/22 Range/Units 04:27 D-Dimer 1.11 H* (0.0-0.50) mg/L Radiology Exams: Radiology Procedures Category Date Time Status CHEST 1 VIEW (PORTABLE) Routine Exams 07/01/22 08:43 Completed ECHO W/2D AND DOPPLER [US] Urgent Exams 07/01/22 10:00 Taken Assessment/Plan (1) A-fib Current Visit: Yes Status: Acute Code(s): I48.91 - UNSPECIFIED ATRIAL FIBRILLATION (2) COVID-19 Current Visit: Yes Status: Acute Code(s): U07.1 - COVID-19 (3) HTN (hypertension) Current Visit: Yes Status: Chronic Code(s): I10 - ESSENTIAL (PRIMARY) HYPERTENSION
[2022-07-02] MEDS: ZOLOFT 50 MG TABLET PO SCH (22:16)
[2022-07-02] MEDS: Geodon 20 MG Capsule PO SCH (22:16)
[2022-07-02] MEDS: REMDESIVIR 100 MG in Sodium Chloride 100ML MINI-BAG PLUS 100 ML IV SCH (22:16)
[2022-07-02] MEDS: Zocor 10MG PO SCH (22:17)
[2022-07-03] MEDS: ROCEPHIN 1 Gm-D5w 50 ml Bag** 1 G/50 ML IVPB IV SCH (10:18)
[2022-07-03] MEDS: Cardizem CD PO SCH (10:19)
[2022-07-03] MEDS: ZYLOPRIM 100 MG PO SCH (10:19)
[2022-07-03] MEDS: SYNTHROID 88 MCG PO SCH (10:19)
[2022-07-03] MEDS: ELIQUIS 2.5 MG TABLET PO SCH (10:19)
[2022-07-03] MEDS: PROTONIX 40 MG IV IV SCH (10:39)
--- NOTE | 2022-07-03 12:40 | ECHO ---
DATE OF PROCEDURE: 07/01/2022 CLINICAL INFORMATION: New onset atrial fibrillation with rapid ventricular response. The M-mode 2D, and Doppler echocardiogram including color flow Doppler is remarkable for poor windows. The left ventricle appears to be normal in size. There is no thrombus present. The wall thickness is normal. The contractility is normal. The ejection fraction is calculated to be 64%. The right ventricle is not well visualized. The left atrium is normal in size. The interatrial septum is intact. The right atrium is normal. The aortic valve opens well. It is trileaflet. There is no aortic regurgitation. There is mitral valve leaflet thickening associated with mild mitral regurgitation. There is mild tricuspid regurgitation. The right ventricular systolic pressure is calculated to be 30 mm of [place]. The pulmonic valve is not well visualized. The aortic root is normal. There is no pericardial effusion present. IMPRESSION: 1) NORMAL CONTRACTILITY OF THE LEFT VENTRICLE. 2) MILD MITRAL REGURGITATION. 3) MILD TRICUSPID REGURGITATION. 4) BORDERLINE MILD PULMONARY HYPERTENSION.
[2022-07-03 16:09] VITALS: O2SAT 93
[2022-07-03] MEDS ORDERED: REMDESIVIR 100 MG in Sodium Chloride 100ML MINI-BAG PLUS 100 ML IV SCH (17:00)
[2022-07-03 17:31] VITALS: BP 91/55; PULSE 78
== END 2022-07-03 17:22 | disposition home or self-care (01) | DRG 308 ==
LOC: ED 10:07 → ICU 13:06 → OBSVTOIN 07-01 08:44 → MED SURG 07-01 11:58
PROVIDERS: ADMIT Family Medicine; ATTEND Family Medicine
DX: I48.91 Unspecified atrial fibrillation (principal); U07.1 COVID-19; I10 Essential (primary) hypertension; E03.9 Hypothyroidism, unspecified; E78.5 Hyperlipidemia, unspecified; D69.6 Thrombocytopenia, unspecified; E66.01 Morbid (severe) obesity due to excess calories; F41.8 Other specified anxiety disorders; Z86.718 Personal history of other venous thrombosis and embolism; Z79.899 Other long term (current) drug therapy; Z20.828 Contact with and (suspected) exposure to other viral communicable diseases
CPT/HCPCS: 0241U; 36000; 36415; 71045; 80053; 81001; 83880; 84439; 84443; 84484; 85025; 85379; 85610; 85730; 87077; 87086; 87186; 87651; 87880; 93005; 93268; 93306; 94762; 96365; 96372; 96374; 97161; 97530; 99285; 99291; G0378; Q3014; J0248; J0696; J1650; A9270-GY

== ENCOUNTER 2022-12-09 11:37 | Day surgery (SDC) | payer MEDICARE, BC ==
[2022-12-09] MEDS ORDERED: LIDOCAINE HCL 2% 100 MG/5 ML IJ ONE (11:38)
[2022-12-09] MEDS ORDERED: Depo-Medrol 40 MG/ML IM ONE (11:38)
[2022-12-09] MEDS ORDERED: DIPRIVAN 200 MG/20 ML IV ONE (14:02)
[2022-12-09] MEDS ORDERED: Lactated Ringers 1,000 ML IV ONE (14:18)
--- NOTE | 2022-12-09 15:17 | XRAY ---
20 seconds of fluoroscopy was used in surgery for a bilateral L4-S1 MBB.
--- NOTE | 2022-12-09 15:17 | XRAY ---
Indication: Bilateral L4-S1 MBB. Intraoperative fluoroscopy provided for 20 seconds. Single digital spot image submitted for interpretation demonstrates posterior needle tips projecting over the expected left and right L4-S1 nerve roots. Correlate with intraoperative findings/report.
== END 2022-12-09 14:32 | disposition home or self-care (01) ==
LOC: SDC-PAIN 11:37
PROVIDERS: ATTEND Psychiatry & Neurology Pain Medicine
DX: M47.816 Spondylosis without myelopathy or radiculopathy, lumbar region (principal); Z79.899 Other long term (current) drug therapy
CPT/HCPCS: 64493; 64494; 72020; 77002; J1030; J2704

== ENCOUNTER 2025-01-01 10:23 | Emergency (ER) | payer MEDICARE, BC ==
[2025-01-01] MEDS ORDERED: Cardizem IV 50 MG/10 ML IV ONE (10:36)
[2025-01-01] MEDS: Cardizem IV 50 MG/10 ML IV ONE ×2 (10:37→11:27)
[2025-01-01 10:49] LABS: A-aADO2 192; ABG HEMOGLOBIN 14.4; ABG POTASSIUM 4.3 (3.5-5.1); ARTERIAL BLD GAS O2 SATURATION 94.1 % (95-100); ARTERIAL BLOOD GAS BASE EXCESS -1.4 (-2.0-2.0); ARTERIAL BLOOD GAS FIO2 40 %; ARTERIAL BLOOD GAS PCO2 24 mmHg (35-45); ARTERIAL BLOOD GAS PO2 63 mmHg (75-100); ARTERIAL BLOOD GAS TEMPERATURE 37.0 C; HCO3- 19.6 (22-28); HGB O2 SAT 91.3 g/dF (94-100); Methhemoglobin 0.8 % (1.4-1.5); paO2 pAO1 0.25
[2025-01-01 10:50] LABS: ABG SITE LEFT RADIAL; ALLEN TEST OK? YES
[2025-01-01 10:54] LABS: BASOPHIL % 0.4 % (0.1-1.2); Basophil (Absolute #) 0.04 x10^3/uL (0.01-0.08); Eosinophil (Absolute #) 0.07 x10^3/uL (0.04-0.36); Hematocrit 44.9 % (34.1-44.9); Hemoglobin 14.5 g/dL (11.2-15.7); IMMATURE GRAN # 0.05 x10^3u/L (0.001-0.031); IMMATURE GRAN % 0.6 % (0.001-0.429); Lymphocyte (Absolute #) 1.12 x10^3/uL (1.18-3.74); Mean Corpuscular Hemoglobin 31.3 pg (25.6-32.2); Mean Corpuscular Hgb Concent. 32.3 g/dL (32.2-35.5); Monocyte (Absolute #) 0.59 x10^3/uL (0.24-0.86); NUCLEATED RBC # 0.00 x10^3u/L (0.00-0.012); NUCLEATED RBC % 0.0 % (0.00-0.2); Platelet Count 185 x10^3/uL (182-369); Red Blood Count 4.64 x10^6/uL (3.93-5.22); White Blood Count 9.1 x10^3/uL (3.98-10.04)
--- NOTE | 2025-01-01 10:59 | XRAY ---
Indication: Short of breath. Comparison: July 01, 2022 Portable chest demonstrates new diffuse hazy ground-glass airspace disease, [id number]. No consolidation/large effusion. Heart not enlarged. Bony thorax intact again with osteopenia and degenerative changes.
[2025-01-01 11:04] LABS: Calcium 8.9 mg/dL (8.4-10.2); Carbon Dioxide 17.0 mmol/L (22-30); Creatinine 1 0.73 mg/dL (0.52-1.04); EST GLOMERULAR FILTRATION RATE 85.7 ML/MIN; Glucose 157.0 mg/dL (74-106)
[2025-01-01 11:05] LABS: Potassium 4.5 mmol/L (3.5-5.1)
[2025-01-01 11:27] VITALS: TEMP 97.7
[2025-01-01 11:34] LABS: INFLUENZA A NEGATIVE (NEGATIVE); INFLUENZA B NEGATIVE (NEGATIVE); RESPIRATORY SYNCTIAL VIRUS NEGATIVE (NEGATIVE); SARS-CoV-2 Xpert Express NEGATIVE (NEGATIVE)
--- NOTE | 2025-01-01 12:46 | ERPHSYRPT ---
- History of Present Illness Time Seen by Provider: 01/01/25 10:25 Source: patient Exam Limitations: no limitations Patient Subjective Stated Complaint: patient stated that about a week ago she started feeling weak and short of breath, patient stated that she had approximately 4 falls within the weeks timespan, patient stated she got the flu shot then all seemed to go downhill Triage Nursing Assessment: patient presents to ed via private vehicle, patient wheeled into ed due to patient being short of breath, upon arrival patient's oxygen saturation was 77% on room air, patient tachypenic with labored respirations, patient placed on 5 L oxygen via nasal cannula with oxygen coming up to 95% and patient stating she feels much better, upon arrival patient's skin appeared to be pale in color; however, skin now p/w/d after oxygen placement, denies chest pain, patient's lungs clear, patient's abdomen soft/nontender/nondistended, patient's initial heart rate was around 130s with an irregular rate Physician History: Patient comes to the emergency room because she has been getting more short of breath tired and having palpitations and dizziness going on for the past couple Timing/Duration: day(s) Severity of Dyspnea-Max: moderate Severity of Dyspnea-Current: moderate Possible Cause: frequent episodes Modifying Factors: Improves With: activity Associated Symptoms: heart racing, No chest pain/discomfort Allergies/Adverse Reactions: amoxicillin Allergy (Verified 01/01/25 10:34) Hives erythromycin base Allergy (Verified 01/01/25 10:34) Hives levofloxacin [From Levaquin] Allergy (Verified 01/01/25 10:34) Hives famotidine [From Pepcid] Adverse Reaction (Intermediate, Verified 01/01/25 10:34) Diarrhea omeprazole [From Prilosec] Adverse Reaction (Intermediate, Verified 01/01/25 10:34) Diarrhea Penicillins Adverse Reaction (Intermediate, Verified 01/01/25 10:34) Hives shellfish derived Adverse Reaction (Intermediate, Verified 01/01/25 10:34) Hives Home Medications: Allopurinol 100 mg [Zyloprim 100 mg] 100 mg PO DAILY 01/17/21 [History] Atorvastatin Calcium 10 mg PO HS 01/17/21 [History] Levothyroxine Sodium 88 Mcg [Synthroid 88 Mcg] 88 mcg PO DAILY 01/17/21 [History] Sertraline HCl 100 mg PO HS 01/17/21 [History] Solifenacin Succinate 10 mg PO DAILY 01/17/21 [History] Acetaminophen 500 mg [Tylenol Extra Strength 500 mg] 500 mg PO Q4HPRN PRN 06/30/22 [History] Amlodipine Besylate 2.5 mg PO DAILY 06/30/22 [History] Colesevelam HCl [Welchol] 625 mg PO QAM 06/30/22 [History] Diphenhydramine HCl 25 mg [Benadryl 25 mg Capsule] 25 mg PO Q4H PRN PRN 06/30/22 [History] ziprasidone HCL [Geodon] 40 mg PO HS 06/30/22 [History] Hx Tetanus, Diphtheria Vaccination/Date Given: No Hx Influenza Vaccination/Date Given: Yes (last wednesday) Hx Pneumococcal Vaccination/Date Given: No Travel Risk - International Travel Have you traveled outside of the country in past 3 weeks: No - Emerging Infectious Disease Are you exhibiting symptoms associated with any current EIDs: No - Review of Systems Constitutional: No Fever, No Chills Eyes: No Symptoms Respiratory: Dyspnea Cardiac: Palpitations Abdominal/Gastrointestinal: No Abdominal Pain, No Nausea, No Vomiting, No Diarrhea Musculoskeletal: No Back Pain, No Neck Pain Psychological: Anxiety - Past Medical History Pertinent Past Medical History: Yes Neurological History: Peripheral Neuropathy ENT History: No Pertinent History Cardiac History: Arrhythmia Respiratory History: No Pertinent History Endocrine Medical History: Hypothyroidism, Other Musculoskeletal History: Osteoarthritis GI Medical History: Diverticulitis, GERD, Polyps History: No Pertinent History Psycho-Social History: Anxiety, Depression Female Reproductive Disorders: No Pertinent History Other Medical History: A-FIB, SPELLS OF OA IN THE HANDS, CIRRHOSIS OF LIVER, R YOBANI IN 2018. - Past Surgical History Past Surgical History: Yes Neuro Surgical History: No Pertinent History Cardiac: No Pertinent History Respiratory: No Pertinent History Gastrointestinal: Cholecystectomy Musculoskeletal: Joint Replacement Female Surgical History: Hysterectomy Other Surgical History: HX RIGHT HIP PLACEMENT - Social History Smoking Status: Never smoker Exposure to second hand smoke: No Drug Use: none - Social Determinants of Health Will the patient participate in the screening: Yes Do you worry about a steady place to live?: No Do you have any problems with any of the following?: No known problems In the past 12 months,have you had to go without utilities?: No Transportation Issues: No Has anyone in your support network made you feel unsafe?: No Have you or anyone in your house had to go w/o enough food: No - Nursing Vital Signs Nursing Vital Signs: Initial Vital Signs Temperature 97.7 F 01/01/25 10:23 Pulse Rate 116 H 01/01/25 10:23 Respiratory Rate 26 H 01/01/25 10:23 Blood Pressure 115/80 01/01/25 10:23 O2 Sat by Pulse Oximetry 94 L 01/01/25 10:23 Pain Scale Pain Intensity 0 - Physical Exam General Appearance: moderate distress, obese Eye Exam: PERRL/EOMI Neck Exam: normal inspection, supple Respiratory Exam: diminished breath sounds Cardiovascular/Chest Exam: tachycardia, irregular Abdominal/Gastrointestinal Exam: soft Extremity Exam: non-tender Neurologic Exam: alert, oriented x 3 SpO2 Interpretation: O2 applied SpO2: 93 O2 Delivery: Nasal Cannula - Course Nursing assessment & vital signs reviewed: Yes EKG Interpreted by Me: Manuelafib Rhythm Strip: Atrial Fibrillation - Radiology Exams Chest X-ray Interpretation: Teleradiologist Report, No Pneumonia, No Pneumothorax, No Infiltrates - CT Exams Chest CT Interpretation: Tele-radiologist Report, No Fracture, No PE Ordered Tests: Active Orders 24 hr Category Date Time Status EKG-ER Only STAT Care 01/01/25 10:27 Active CHEST 1 VIEW (PORTABLE) Stat Exams 01/01/25 10:27 Completed CHEST WITH CONTRAST [CT] Stat Exams 01/01/25 13:02 Completed ARTERIAL BLOOD GASES Stat Lab 01/01/25 10:45 Completed BMP Stat Lab 01/01/25 10:29 Completed CBC W DIFF Stat Lab 01/01/25 10:25 Completed Lactic Acid Stat Lab 01/01/25 10:45 Completed Lactic Acid Stat Lab 01/01/25 12:50 Received NT PRO BNPII Stat Lab 01/01/25 10:50 Received TROPONIN Stat Lab 01/01/25 10:25 Completed Medication Summary Generic Name Dose Route Start Last Admin Trade Name Freq PRN Reason Stop Dose Admin Diltiazem HCl 100 mls @ 5 mls/hr 01/01/25 12:47 01/01/25 14:36 Cardizem Drip 100 Mg/100 Ml D5w IV 11/26/25 12:46 7.5 mg/hr .Q20H PRN 7.5 mls/hr HEART RATE/ A-FIB Titration Protocol 5 MG/HR Discontinued Medications Generic Name Dose Route Start Last Admin Trade Name Freq PRN Reason Stop Dose Admin Diltiazem HCl 15 mg 01/01/25 10:28 01/01/25 10:37 Diltiazem Hcl Iv 5 Mg/Ml Vial IV 01/01/25 10:29 15 mg STAT ONE Administration Diltiazem HCl Confirm 01/01/25 10:36 Diltiazem Hcl Iv 5 Mg/Ml Vial Administered 01/01/25 10:37 Dose 50 mg IV .STK-MED ONE Diltiazem HCl 25 mg 01/01/25 11:08 01/01/25 11:27 Diltiazem Hcl Iv 5 Mg/Ml Vial IV 01/01/25 11:09 25 mg STAT ONE Administration Furosemide 40 mg 01/01/25 15:01 Furosemide 40 Mg/4 Ml Vial IV 01/01/25 15:02 STAT ONE Lab/Rad Data: Laboratory Result Diagrams 01/01/25 10:25 01/01/25 10:29 Laboratory Results 01/01/25 01/01/25 01/01/25 Range/Units Unknown 10:45 10:29 WBC (3.98-10.04) x10^3/uL RBC (3.93-5.22) x10^6/uL Hgb (11.2-15.7) g/dL Hct (34.1-44.9) % MCV (79.4-94.8) fL MCH (25.6-32.2) pg MCHC (32.2-35.5) g/dL RDW (11.7-14.4) % Plt Count (182-369) x10^3/uL MPV (9.4-12.3) fL Gran % (34.0-71.1) % Immature Gran % (Auto) (0.001-0.429) % Nucleat RBC Rel Count (0.00-0.2) % Eos # (Auto) (0.04-0.36) x10^3/uL Immature Gran # (Auto) (0.001-0.031) x10^3u/L Absolute Lymphs (auto) (1.18-3.74) x10^3/uL Absolute Monos (auto) (0.24-0.86) x10^3/uL Absolute Nucleated RBC (0.00-0.012) x10^3u/L Lymphocytes % (19.3-51.7) % Monocytes % (4.7-12.5) % Eosinophils % (0.7-5.8) % Basophils % (0.1-1.2) % Absolute Granulocytes (1.56-6.13) x10^3/uL Basophils # (0.01-0.08) x10^3/uL Puncture Site LEFT RADIAL pCO2 24 L (35-45) mmHg pO2 63 L (75-100) mmHg Base Excess -1.4 (-2.0-2.0) O2 Saturation 91.3 L (94-100) g/dF ABG pH 7.52 H (7.35-7.45) ABG HCO3 19.6 L (22-28) ABG O2 Sat (Measured) 94.1 L (95-100) % Glenn Test YES A-a Gradient 192 a/A Ratio 0.25 Hemoglobin 14.4 Carboxyhemoglobin 2.2 (0.0-6.9) % THgb Methemoglobin 0.8 L (1.4-1.5) % Temperature 37.0 C POC O2 Flow Rate 40 % Sodium 134 L (135-145) mmol/L Potassium 4.3 4.5 (3.5-5.1) mmol/L Chloride 107 (98-107) mmol/L Carbon Dioxide 17 L (22-30) mmol/L Anion Gap 14.6 (5-15) MEQ/L BUN 14 (7-17) mg/dL Creatinine 0.73 (0.52-1.04) mg/dL Estimated GFR 85.7 ML/MIN Glucose 157 H (74-106) mg/dL Lactic Acid 2.1 H (0.4-2.0) Calcium 8.9 (8.4-10.2) mg/dL Troponin I (0.000-0.033) ng/mL Influenza Type A Ag NEGATIVE (NEGATIVE) Influenza Type B Ag NEGATIVE (NEGATIVE) RSV (PCR) NEGATIVE (NEGATIVE) SARS-CoV-2 (PCR) NEGATIVE (NEGATIVE) 01/01/25 01/01/25 Range/Units 10:25 10:25 WBC 9.1 (3.98-10.04) x10^3/uL RBC 4.64 (3.93-5.22) x10^6/uL Hgb 14.5 (11.2-15.7) g/dL Hct 44.9 (34.1-44.9) % MCV 96.8 H (79.4-94.8) fL MCH 31.3 (25.6-32.2) pg MCHC 32.3 (32.2-35.5) g/dL RDW 14.6 H (11.7-14.4) % Plt Count 185 (182-369) x10^3/uL MPV 11.9 (9.4-12.3) fL Gran % 79.4 H (34.0-71.1) % Immature Gran % (Auto) 0.6 H (0.001-0.429) % Nucleat RBC Rel Count 0.0 (0.00-0.2) % Eos # (Auto) 0.07 (0.04-0.36) x10^3/uL Immature Gran # (Auto) 0.05 H (0.001-0.031) x10^3u/L Absolute Lymphs (auto) 1.12 L (1.18-3.74) x10^3/uL Absolute Monos (auto) 0.59 (0.24-0.86) x10^3/uL Absolute Nucleated RBC 0.00 (0.00-0.012) x10^3u/L Lymphocytes % 12.3 L (19.3-51.7) % Monocytes % 6.5 (4.7-12.5) % Eosinophils % 0.8 (0.7-5.8) % Basophils % 0.4 (0.1-1.2) % Absolute Granulocytes 7.20 H (1.56-6.13) x10^3/uL Basophils # 0.04 (0.01-0.08) x10^3/uL Puncture Site pCO2 (35-45) mmHg pO2 (75-100) mmHg Base Excess (-2.0-2.0) O2 Saturation (94-100) g/dF ABG pH (7.35-7.45) ABG HCO3 (22-28) ABG O2 Sat (Measured) (95-100) % Glenn Test A-a Gradient a/A Ratio Hemoglobin Carboxyhemoglobin (0.0-6.9) % THgb Methemoglobin (1.4-1.5) % Temperature C POC O2 Flow Rate % Sodium (135-145) mmol/L Potassium (3.5-5.1) mmol/L Chloride (98-107) mmol/L Carbon Dioxide (22-30) mmol/L Anion Gap (5-15) MEQ/L BUN (7-17) mg/dL Creatinine (0.52-1.04) mg/dL Estimated GFR ML/MIN Glucose (74-106) mg/dL Lactic Acid (0.4-2.0) Calcium (8.4-10.2) mg/dL Troponin I 0.013 (0.000-0.033) ng/mL Influenza Type A Ag (NEGATIVE) Influenza Type B Ag (NEGATIVE) RSV (PCR) (NEGATIVE) SARS-CoV-2 (PCR) (NEGATIVE) - Progress Progress: improved Air Movement: fair Progress Note: 01/01/25 15:09 Patient comes to the emergency room due to shortness of breath and palpitations going on for the past couple days.Patient has history of atrial fibrillation Patient is on blood thinners for it. Patient here was hypoxic and had a heart rate in the 160s. Patient at this moment it was decided to give Cardizem patient was initially given 15 IV Cardizem which helped reduce the heart rate but patient was still in atrial fibrillation after the medication wore off patient went back into A-fib with RVR with a heart rate in the 140s was then given 25 of Cardizem IV which helped to bring the heart rate back down but when the patient was stood up to ambulate heart rate went back up to the 140s at that time the patient was started on a Cardizem drip at this time she is on a Cardizem drip CTA of the chest was done to rule out a PE as the patient was hypoxic and with atrial fibrillation patient was high risk for pulmonary embolus the CTA came back negative patient does still hypoxic which could be secondary to possible CHF for that reason I am going to be giving the patient 40 of Lasix IV. The x-ray does not show any consolidation or opacities CT does not show that either therefore I do not believe this is a pneumonia with her not having a fever and no leukocytosis. 01/01/25 15:15 - Departure Departure Disposition: Transfer Clinical Impression: Shortness of breath A-fib Qualifiers: Atrial fibrillation type: persistent (not longstanding) Qualified Code(s): I 48.19 - Other persistent atrial fibrillation; I48.1 - Persistent atrial fibrillation HTN (hypertension) Qualifiers: Hypertension type: primary hypertension Qualified Code(s): I10 - Essential (primary) hypertension Condition: Fair Critical Care Time: Yes Critical Care Time(excluding separately billable procedures): Critical 135-164 mins Referrals: ELIZABET LAUREN MD [Primary Care Provider, [facility]] - Follow up/PCP as directed
[2025-01-01] MEDS ORDERED: CARDIZEM DRIP 100 MG/100 ML D5W 100 ML IV ONE (12:49)
[2025-01-01] MEDS: CARDIZEM DRIP 100 MG/100 ML D5W 100 ML IV PRN (12:49)
--- NOTE | 2025-01-01 14:25 | XRAY ---
Indication: Short of breath. Multiple contiguous axial images obtained through the chest using 80 cc Isovue 370 contrast and PE protocol. Comparison: None Good opacification pulmonary arteries to include lobar and segmental branches. No pulmonary embolus. Heart borderline enlarged. Aorta is minimally arteriosclerotic without aneurysm/dissection. No pathologic mediastinal/hilar lymphadenopathy. Lungs demonstrates diffuse bilateral patchy ground-glass airspace disease. No consolidation or effusion. Bony thorax intact with osteopenia and minimal/mild degenerative changes throughout spine. Limited upper abdomen demonstrates cirrhotic appearing liver. Impression: 1. Negative pulmonary embolus. 2. Diffuse bilateral patchy ground-glass airspace disease as reported on same day chest radiograph. 2. Incidental arteriosclerotic disease, osteopenia, degenerative spondylosis, and cirrhotic liver.
[2025-01-01] MEDS ORDERED: Lasix 40 MG/4 ML ONE (15:18)
[2025-01-01] MEDS: Lasix 40 MG/4 ML IV ONE (15:18)
[2025-01-01 16:11] VITALS: BP 140/91; PULSE 99; RESP 25; O2SAT 89
== END 2025-01-01 16:25 | disposition short-term general hospital (02) ==
LOC: ED 10:23
DX: R06.02 Shortness of breath (principal); I48.19 Other persistent atrial fibrillation; I11.0 Hypertensive heart disease with heart failure; I50.9 Heart failure, unspecified; R09.02 Hypoxemia; R42 Dizziness and giddiness; Z79.899 Other long term (current) drug therapy